=== PATIENT | male | born 1990 | race Caucasian/White ===

== ENCOUNTER 2016-09-29 12:43 | Emergency (ER) | payer MEDICAID ==
[~2016-09-29] VITALS: Ht 182.9 cm; Wt 132.4 kg
[2016-09-29 13:58] VITALS: BP 139/76
== END 2016-09-29 13:58 | disposition home or self-care (01) ==
LOC: ED 12:43
DX: J02.9 Acute pharyngitis, unspecified (principal); H66.92 Otitis media, unspecified, left ear; J20.9 Acute bronchitis, unspecified; J45.909 Unspecified asthma, uncomplicated; R03.0 Elevated blood-pressure reading, without diagnosis of hypertension
CPT/HCPCS: J2001; J7613; J7644